=== PATIENT | female | born 1970 | race Caucasian/White ===

== ENCOUNTER → 2018-04-25 | Outpatient (CLI) | payer OTHER | LOC: WOUNDCARE 09:14 | PROVIDERS: ATTEND Surgery | DX: I70.245 Atherosclerosis of native arteries of left leg with ulceration of other part of foot (principal); L97.524 Non-pressure chronic ulcer of other part of left foot with necrosis of bone; I70.235 Atherosclerosis of native arteries of right leg with ulceration of other part of foot; L97.512 Non-pressure chronic ulcer of other part of right foot with fat layer exposed; I96 Gangrene, not elsewhere classified; B33.24 Viral cardiomyopathy | CPT/HCPCS: 99204 ==

== ENCOUNTER → 2018-05-02 | Outpatient (CLI) | payer OTHER | LOC: WOUNDCARE 15:06 | PROVIDERS: ATTEND Surgery | DX: I70.245 Atherosclerosis of native arteries of left leg with ulceration of other part of foot (principal); L97.524 Non-pressure chronic ulcer of other part of left foot with necrosis of bone; I70.235 Atherosclerosis of native arteries of right leg with ulceration of other part of foot; L97.512 Non-pressure chronic ulcer of other part of right foot with fat layer exposed; B33.24 Viral cardiomyopathy; I96 Gangrene, not elsewhere classified | CPT/HCPCS: 99213 ==

== ENCOUNTER → 2018-06-01 | Outpatient (CLI) | payer OTHER | LOC: WOUNDCARE 12:43 | PROVIDERS: ATTEND Surgery | DX: I70.245 Atherosclerosis of native arteries of left leg with ulceration of other part of foot (principal); L97.524 Non-pressure chronic ulcer of other part of left foot with necrosis of bone; I70.235 Atherosclerosis of native arteries of right leg with ulceration of other part of foot; L97.512 Non-pressure chronic ulcer of other part of right foot with fat layer exposed; B33.24 Viral cardiomyopathy; I96 Gangrene, not elsewhere classified; I63.9 Cerebral infarction, unspecified | CPT/HCPCS: 99212 ==

== ENCOUNTER → 2018-06-13 | Outpatient (CLI) | payer OTHER | LOC: WOUNDCARE 15:18 | PROVIDERS: ATTEND Surgery | DX: I70.245 Atherosclerosis of native arteries of left leg with ulceration of other part of foot (principal); L97.524 Non-pressure chronic ulcer of other part of left foot with necrosis of bone; I70.235 Atherosclerosis of native arteries of right leg with ulceration of other part of foot; L97.512 Non-pressure chronic ulcer of other part of right foot with fat layer exposed; B33.24 Viral cardiomyopathy; I96 Gangrene, not elsewhere classified; I63.9 Cerebral infarction, unspecified | CPT/HCPCS: 99213 ==

== ENCOUNTER → 2018-06-27 | Outpatient (CLI) | payer OTHER | LOC: WOUNDCARE 15:07 | PROVIDERS: ATTEND Surgery | DX: I70.245 Atherosclerosis of native arteries of left leg with ulceration of other part of foot (principal); L97.522 Non-pressure chronic ulcer of other part of left foot with fat layer exposed; I70.235 Atherosclerosis of native arteries of right leg with ulceration of other part of foot; L97.512 Non-pressure chronic ulcer of other part of right foot with fat layer exposed; I96 Gangrene, not elsewhere classified; B33.24 Viral cardiomyopathy; I63.9 Cerebral infarction, unspecified | CPT/HCPCS: 99212 ==

== ENCOUNTER → 2018-07-11 | Outpatient (CLI) | payer OTHER | LOC: WOUNDCARE 15:18 | PROVIDERS: ATTEND Surgery | DX: I70.245 Atherosclerosis of native arteries of left leg with ulceration of other part of foot (principal); L97.522 Non-pressure chronic ulcer of other part of left foot with fat layer exposed; I70.235 Atherosclerosis of native arteries of right leg with ulceration of other part of foot; L97.512 Non-pressure chronic ulcer of other part of right foot with fat layer exposed; I96 Gangrene, not elsewhere classified | CPT/HCPCS: 99212 ==

== ENCOUNTER → 2018-07-18 | Outpatient (CLI) | payer OTHER | LOC: WOUNDCARE 13:43 | PROVIDERS: ATTEND Surgery | DX: I70.262 Atherosclerosis of native arteries of extremities with gangrene, left leg (principal); L97.522 Non-pressure chronic ulcer of other part of left foot with fat layer exposed; I70.235 Atherosclerosis of native arteries of right leg with ulceration of other part of foot; L97.512 Non-pressure chronic ulcer of other part of right foot with fat layer exposed | CPT/HCPCS: 99213 ==

== ENCOUNTER → 2018-08-01 | Outpatient (CLI) | payer OTHER | LOC: WOUNDCARE 15:12 | PROVIDERS: ATTEND Nurse Practitioner | DX: L97.522 Non-pressure chronic ulcer of other part of left foot with fat layer exposed (principal); L97.512 Non-pressure chronic ulcer of other part of right foot with fat layer exposed; I70.263 Atherosclerosis of native arteries of extremities with gangrene, bilateral legs | CPT/HCPCS: 99213 ==

== ENCOUNTER → 2018-08-15 | Outpatient (CLI) | payer OTHER | LOC: WOUNDCARE 15:13 | PROVIDERS: ATTEND Nurse Practitioner | DX: I70.245 Atherosclerosis of native arteries of left leg with ulceration of other part of foot (principal); L97.522 Non-pressure chronic ulcer of other part of left foot with fat layer exposed; I70.235 Atherosclerosis of native arteries of right leg with ulceration of other part of foot; L97.512 Non-pressure chronic ulcer of other part of right foot with fat layer exposed; I96 Gangrene, not elsewhere classified | CPT/HCPCS: 99213 ==

== ENCOUNTER → 2018-08-29 | Outpatient (CLI) | payer OTHER | LOC: WOUNDCARE 15:04 | PROVIDERS: ATTEND Nurse Practitioner | DX: I70.263 Atherosclerosis of native arteries of extremities with gangrene, bilateral legs (principal); L97.522 Non-pressure chronic ulcer of other part of left foot with fat layer exposed; L97.512 Non-pressure chronic ulcer of other part of right foot with fat layer exposed | CPT/HCPCS: 99212 ==

== ENCOUNTER → 2018-09-19 | Outpatient (CLI) | payer OTHER | LOC: WOUNDCARE 10:16 | PROVIDERS: ATTEND Nurse Practitioner | DX: I70.263 Atherosclerosis of native arteries of extremities with gangrene, bilateral legs (principal); I70.245 Atherosclerosis of native arteries of left leg with ulceration of other part of foot; L97.522 Non-pressure chronic ulcer of other part of left foot with fat layer exposed; I70.235 Atherosclerosis of native arteries of right leg with ulceration of other part of foot; L97.512 Non-pressure chronic ulcer of other part of right foot with fat layer exposed | CPT/HCPCS: 99212 ==

== ENCOUNTER → 2018-10-10 | Outpatient (CLI) | payer OTHER | LOC: WOUNDCARE 15:10 | PROVIDERS: ATTEND Surgery | DX: I70.245 Atherosclerosis of native arteries of left leg with ulceration of other part of foot (principal); L97.522 Non-pressure chronic ulcer of other part of left foot with fat layer exposed; I96 Gangrene, not elsewhere classified | CPT/HCPCS: 99212 ==

== ENCOUNTER → 2018-10-31 | Outpatient (CLI) | payer OTHER | LOC: WOUNDCARE 15:29 | PROVIDERS: ATTEND Surgery | DX: I70.245 Atherosclerosis of native arteries of left leg with ulceration of other part of foot (principal); I70.262 Atherosclerosis of native arteries of extremities with gangrene, left leg; L97.522 Non-pressure chronic ulcer of other part of left foot with fat layer exposed | CPT/HCPCS: 99212 ==

== ENCOUNTER → 2018-11-28 | Outpatient (CLI) | payer OTHER | LOC: WOUNDCARE 14:56 | PROVIDERS: ATTEND Surgery | DX: I70.245 Atherosclerosis of native arteries of left leg with ulceration of other part of foot (principal); I70.262 Atherosclerosis of native arteries of extremities with gangrene, left leg; L97.522 Non-pressure chronic ulcer of other part of left foot with fat layer exposed | CPT/HCPCS: 99212 ==

== ENCOUNTER → 2018-12-26 | Outpatient (CLI) | payer OTHER | LOC: WOUNDCARE 15:42 | PROVIDERS: ATTEND Surgery | DX: I70.245 Atherosclerosis of native arteries of left leg with ulceration of other part of foot (principal); I70.262 Atherosclerosis of native arteries of extremities with gangrene, left leg; L97.521 Non-pressure chronic ulcer of other part of left foot limited to breakdown of skin | CPT/HCPCS: 99212 ==

== ENCOUNTER → 2019-01-23 | Outpatient (CLI) | payer OTHER | LOC: WOUNDCARE 15:28 | PROVIDERS: ATTEND Surgery | DX: I70.245 Atherosclerosis of native arteries of left leg with ulceration of other part of foot (principal); I70.262 Atherosclerosis of native arteries of extremities with gangrene, left leg; L97.524 Non-pressure chronic ulcer of other part of left foot with necrosis of bone | CPT/HCPCS: 99212 ==

== ENCOUNTER → 2019-02-21 | Outpatient (CLI) | payer OTHER | LOC: WOUNDCARE 11:58 | PROVIDERS: ATTEND Surgery | DX: L97.524 Non-pressure chronic ulcer of other part of left foot with necrosis of bone (principal); I70.245 Atherosclerosis of native arteries of left leg with ulceration of other part of foot; I96 Gangrene, not elsewhere classified | CPT/HCPCS: 11044 ==

== ENCOUNTER → 2019-02-28 | Outpatient (CLI) | payer OTHER | LOC: WOUNDCARE 13:28 | PROVIDERS: ATTEND Surgery | DX: L97.526 Non-pressure chronic ulcer of other part of left foot with bone involvement without evidence of necrosis (principal); I70.245 Atherosclerosis of native arteries of left leg with ulceration of other part of foot; I96 Gangrene, not elsewhere classified | CPT/HCPCS: 99213 ==

== ENCOUNTER → 2019-03-28 | Outpatient (CLI) | payer OTHER | LOC: WOUNDCARE 13:15 | PROVIDERS: ATTEND Surgery | DX: L97.526 Non-pressure chronic ulcer of other part of left foot with bone involvement without evidence of necrosis (principal); I70.245 Atherosclerosis of native arteries of left leg with ulceration of other part of foot; I96 Gangrene, not elsewhere classified | CPT/HCPCS: 11044 ==

== ENCOUNTER → 2019-04-11 | Outpatient (CLI) | payer OTHER | LOC: WOUNDCARE 12:59 | PROVIDERS: ATTEND Surgery | DX: L97.526 Non-pressure chronic ulcer of other part of left foot with bone involvement without evidence of necrosis (principal); I70.245 Atherosclerosis of native arteries of left leg with ulceration of other part of foot; I96 Gangrene, not elsewhere classified | CPT/HCPCS: 99212 ==

== ENCOUNTER 2019-06-20 09:53 | Emergency (ER) | payer OTHER ==
[~2019-06-20] VITALS: Ht 160 cm; Wt 109.0 kg
[2019-06-20 11:20] LABS: BASOPHILS # (AUTO) 0.1 10^3/uL (0.0-0.1); BASOPHILS % (AUTO) 1 % (0-10); EOSINOPHILS # (AUTO) 0.2 10^3/uL (0.0-0.3); EOSINOPHILS % (AUTO) 2 % (0-10); HEMATOCRIT 43 % (35-52); LYMPHOCYTES # (AUTO) 1.3 X 10^3 (1.0-4.0); LYMPHOCYTES % (AUTO) 16 % (12-44); MEAN CORPUSCULAR HEMOGLOBIN 29 PG (25-34); MEAN CORPUSCULAR HGB CONC 33 G/DL (32-36); MEAN CORPUSCULAR VOLUME 88 FL (80-99); MEAN PLATELET VOLUME 11.6 FL (7.4-10.4); MONOCYTES # (AUTO) 0.7 X 10^3 (0.0-1.0); MONOCYTES % (AUTO) 8 % (0-12); NEUTROPHILS # (AUTO) 6.2 X 10^3 (1.8-7.8); NEUTROPHILS % (AUTO) 73 % (42-75); PLATELET COUNT 233 10^3/uL (130-400); RED CELL DISTRIBUTION WIDTH 13.9 % (10.0-14.5); WHITE BLOOD COUNT 8.5 10^3/uL (4.3-11.0)
[2019-06-20 11:29] LABS: POTASSIUM 3.8 MMOL/L (3.6-5.0); SODIUM 142 MMOL/L (135-145)
[2019-06-20 11:30] LABS: ALANINE AMINOTRANSFERASE 64 U/L (0-55); ALBUMIN 4.3 GM/DL (3.2-4.5); ALKALINE PHOSPHATASE 225 U/L (40-136); BILIRUBIN,TOTAL 0.7 MG/DL (0.1-1.0); BUN/CREATININE RATIO 18; CALCIUM 9.8 MG/DL (8.5-10.1); CARBON DIOXIDE 26 MMOL/L (21-32); CHLORIDE 105 MMOL/L (98-107); CREATININE SERUM 0.72 MG/DL (0.60-1.30); GFR ESTIMATED > 60; GLUCOSE 118 MG/DL (70-105); TOTAL PROTEIN 7.7 GM/DL (6.4-8.2)
[2019-06-20] MEDS ORDERED: HOLD METFORMIN - RECEIVED CONTRAST 20 ML VIAL IV SCH (11:45)
[2019-06-20] MEDS ORDERED: CATHETER FLUSH 10 ML SYR IV PRN (11:45)
[2019-06-20] MEDS ORDERED: NS 100 ML (IVPB) BAG IV ONE (11:45)
[2019-06-20] MEDS ORDERED: IOHEXOL 350 MG/ML 150 ML (OMNIPAQUE 350) VIAL IV ONE (11:45)
--- NOTE | 2019-06-20 12:26 | Diagnostic Imaging Report ---
PROCEDURE: CT angiography Chest TECHNIQUE: After intravenous administration of contrast, thin section axial CT angiography of the chest was performed. 3D MIP reconstructions were made. All CT scans use one or more of the following dose optimizing techniques: automated exposure control, MA and/or KvP adjustment based on a patient size and exam type, or iterative reconstruction. INDICATION: Shortness of air. COMPARISON: None available. FINDINGS: Vasculature: No pulmonary emboli. No CT evidence of pulmonary hypertension or right ventricular strain. Thoracic aorta is normal in caliber. No aortic dissection or pseudoaneurysm. Heart and mediastinum: Visualized thyroid is normal. No supraclavicular, axillary, or intra-thoracic lymphadenopathy. The heart is normal in size without pericardial effusion. Pleura: Trace bilateral pleural effusions. No pneumothorax. Lungs and airway: No endoluminal lesion in the trachea or central bronchi. No pulmonary mass, nodule or consolidation. Upper abdomen: Cholelithiasis. No CT features of acute cholecystitis. Musculoskeletal: No concerning osseous lesion. IMPRESSION: 1. No pulmonary emboli or acute aortic syndrome. 2. Trace bilateral pleural effusions. 3. Lungs are clear. Dictated by: Dictated on workstation # [id number]
--- NOTE | 2019-06-20 12:42 | ED Respiratory ---
General Chief Complaint: Respiratory Problems Stated Complaint: SOB HX SURGERY Nursing Triage Note: Patient c/o shortness of air. States that she had surgery on Wednesday to have her left great toe amputated and her achillis lengthened. She reports that she has been short of air since Wednesday. Source: patient History of Present Illness Date Seen by Provider: Jun 20, 2019 Time Seen by Provider: 11:00 Initial Comments Patient presents with increased shortness breath over the past 3 days after having her left great toe amputated for gangrene. Patient reports sensation of inability to take a deep breath. She denies chest tightness, chest pain, nausea vomiting, shortness of breath, fever chills or sweats. No abdominal pain. Denies history of coronary disease, congestive heart failure, asthma or chronic disease. Patient states she had an echocardiogram prior to her surgery which was normal. No other acute symptoms or complaints. Patient is not on anticoagulation therapy Timing/Duration: yesterday, intermittent Severity: mild Prior Episodes/Possible Cause: no prior episodes Allergies and Home Medications Allergies Coded Allergies: No Known Drug Allergies (Unverified , 06/20/19) Patient Home Medication List Home Medication List Reviewed: Yes Review of Systems Review of Systems Constitutional: see HPI EENTM: see HPI Respiratory: see HPI Cardiovascular: see HPI Gastrointestinal: see HPI Genitourinary: see HPI Musculoskeletal: see HPI Past Blqqfgs-Mufqgs-Arjnek Hx Past Med/Social Hx: Reviewed Nursing Past Med/Soc Hx Patient Social History Alcohol Use: Denies Use Recreational Drug Use: No Smoking Status: Never a Smoker 2nd Hand Smoke Exposure: No Recent Foreign Travel: No Contact w/Someone Who Travel: No Recent Infectious Disease Expo: No Recent Hopitalizations: Yes (Surgery on Sunday June 16, 2019) Physical Abuse: No Sexual Abuse: No Mistreated: No Fear: No Seasonal Allergies Seasonal Allergies: No Past Medical History Surgeries: Yes (Left great toe amputated, Achillis lengthened) Amputation, Orthopedic Respiratory: Yes Sleep Apnea Cardiac: Yes (PAD, ) Hypertension, Peripheral Vascular Stroke Female Reproductive Disorders: Endometriosis Genitourinary: No Gastrointestinal: No Musculoskeletal: No Endocrine: Yes Hypothyroidsim HEENT: No Cancer: No Psychosocial: No Integumentary: No Blood Disorders: No Physical Exam Vital Signs - First Documented 06/20/19 10:00 Temp 36.7 Pulse 40 Resp 18 B/P (MAP) 150/77 (101) Pulse Ox 95 O2 Delivery Room Air Capillary Refill : Less Than 3 Seconds Height: '" Weight: lbs. oz. 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, no motor/sensory deficits, oriented x 3 Focused Exam Sepsis Stage: Ruled Out Progress/Results/Core Measures Suspected Sepsis Recent Fever Within 48 Hours: No Infection Criteria Present: None New/Unexplained Altered Menta: No Sepsis Screen: No Definite Risk SIRS Temperature: Pulse: 40 Respiratory Rate: 18 Laboratory Tests 06/20/19 10:45: White Blood Count 8.5 Blood Pressure 150 /77 Mean: 101 Laboratory Tests 06/20/19 10:45: Creatinine 0.72, Platelet Count 233, Total Bilirubin 0.7 Results/Orders Lab Results Laboratory Tests Test 06/20/19 10:45 Range/Units White Blood Count 8.5 4.3-11.0 10^3/uL Red Blood Count 4.86 4.35-5.85 10^6/uL Hemoglobin 14.0 11.5-16.0 G/DL Hematocrit 43 35-52 % Mean Corpuscular Volume 88 80-99 FL Mean Corpuscular Hemoglobin 29 25-34 PG Mean Corpuscular Hemoglobin Concent 33 32-36 G/DL Red Cell Distribution Width 13.9 10.0-14.5 % Platelet Count 233 130-400 10^3/uL Mean Platelet Volume 11.6 H 7.4-10.4 FL Neutrophils (%) (Auto) 73 42-75 % Lymphocytes (%) (Auto) 16 12-44 % Monocytes (%) (Auto) 8 0-12 % Eosinophils (%) (Auto) 2 0-10 % Basophils (%) (Auto) 1 0-10 % Neutrophils # (Auto) 6.2 1.8-7.8 X 10^3 Lymphocytes # (Auto) 1.3 1.0-4.0 X 10^3 Monocytes # (Auto) 0.7 0.0-1.0 X 10^3 Eosinophils # (Auto) 0.2 0.0-0.3 10^3/uL Basophils # (Auto) 0.1 0.0-0.1 10^3/uL Sodium Level 142 135-145 MMOL/L Potassium Level 3.8 3.6-5.0 MMOL/L Chloride Level 105 98-107 MMOL/L Carbon Dioxide Level 26 21-32 MMOL/L Anion Gap 11 5-14 MMOL/L Blood Urea Nitrogen 13 7-18 MG/DL Creatinine 0.72 0.60-1.30 MG/DL Estimat Glomerular Filtration Rate > 60 BUN/Creatinine Ratio 18 Glucose Level 118 H 70-105 MG/DL Calcium Level 9.8 8.5-10.1 MG/DL Corrected Calcium 9.6 8.5-10.1 MG/DL Total Bilirubin 0.7 0.1-1.0 MG/DL Aspartate Amino Transf (AST/SGOT) 44 H 5-34 U/L Alanine Aminotransferase (ALT/SGPT) 64 H 0-55 U/L Alkaline Phosphatase 225 H 40-136 U/L Troponin I < 0.30 <0.30 NG/ML Pro-B-Type Natriuretic Peptide 203.8 H <75.0 PG/ML Total Protein 7.7 6.4-8.2 GM/DL Albumin 4.3 3.2-4.5 GM/DL My Orders Orders - KARYNA OH DO Cbc With Automated Diff (06/20/19 10:27) Comprehensive Metabolic Panel (06/20/19 10:27) Troponin I Fs (06/20/19 10:27) Probnp Fs (06/20/19 10:27) Ekg Tracing (06/20/19 10:27) Ct Angio Chest W (06/20/19 10:55) Iohexol Injection (Omnipaque 350 Mg/Ml 1 (06/20/19 11:45) Received Contrast (Hold Metformin- Contr (06/20/19 11:45) Ns (Ivpb) (Sodium Chloride 0.9% Ivpb Bag (06/20/19 11:45) Sodium Chloride Flush (Catheter Flush Sy (06/20/19 11:45) Medications Given in ED Current Medications Medications Dose Ordered Sig/Indy Route Start Time Stop Time Status Last Admin Dose Admin Iohexol 125 ml ONCE ONCE IV 06/20/19 11:45 06/20/19 11:46 DC 06/20/19 11:58 125 ML Sodium Chloride 10 ml NEEDED PRN IV 06/20/19 11:45 06/20/19 11:58 10 ML Sodium Chloride 100 ml ONCE ONCE IV 06/20/19 11:45 06/20/19 11:46 DC 06/20/19 11:58 80 ML Vital Signs/I&O 06/20/19 10:00 Temp 36.7 Pulse 40 Resp 18 B/P (MAP) 150/77 (101) Pulse Ox 95 O2 Delivery Room Air Capillary Refill : Less Than 3 Seconds Blood Pressure Mean: 101 Departure Communication (Admissions) EKG, lab, CT at bedtime reviewed. Studies are reassuring. Patient's BNP midly elevated without evidence of congestive heart failure on CT chest. Will increase patient's diuretic over the next 3 days with PCP follow-up. Return precautions reviewed. Patient verbalizes understanding and agreement with discharge instructions prior to departure. Impression Primary Impression: Dyspnea Disposition: 20 Condition: Improved Departure-Patient Inst. Decision time for Depature: 12:41 Referrals: OZZIE NGUYEN MD (PCP/Family) Primary Care Physician Patient Instructions: Shortness of Breath (Dyspnea) (DC) Add. Discharge Instructions: You were evaluated emergency department for shortness of breath. EKG lab and imaging studies were performed and are nondiagnostic. The exact cause of your symptoms has not been determined. Please increase home medications and take a double dose of your diuretic daily for the next 3 days. Follow-up with your PCP for reevaluation later this week. Return to the ED if new or worsening symptoms. All discharge instructions reviewed with patient and/or family. Voiced understanding. KARYNA OH DO Jun 20, 2019 12:42
[2019-06-20 12:58] VITALS: BP 124/69
== END 2019-06-20 12:58 | disposition home or self-care (01) ==
LOC: EDUNIT# 09:53 → ER FS 09:54
DX: R06.00 Dyspnea, unspecified (principal); I10 Essential (primary) hypertension; E03.9 Hypothyroidism, unspecified; Z86.73 Personal history of transient ischemic attack (TIA), and cerebral infarction without residual deficits; Z89.412 Acquired absence of left great toe
CPT/HCPCS: 36415; 71275; 80053; 83880; 84484; 85025; 93005

== ENCOUNTER 2022-12-23 21:19 | Emergency (ER) | payer BC, OTHER ==
[~2022-12-23] VITALS: Ht 170 cm; Wt 148.0 kg
[2022-12-23] MEDS ORDERED: SUCCINYLCHOLINE INJ 20 MG/1 ML 10 ML VIAL INJ ONE (21:24)
[2022-12-23] MEDS ORDERED: AMIODARONE 150 MG/3 ML (CORDARONE) VIAL IV ONE (21:24)
[2022-12-23] MEDS ORDERED: ETOMIDATE IV SOLN 20 MG/10 ML VIAL IV ONE (21:24)
[2022-12-23] MEDS ORDERED: MIDAZOLAM 5 MG/5 ML (VERSED) VIAL IJ ONE (21:24)
[2022-12-23 21:43] LABS: BASOPHILS # (AUTO) 0.3 10^3/uL (0.0-0.1); BASOPHILS % (AUTO) 1 % (0-10); EOSINOPHILS # (AUTO) 0.5 10^3/uL (0.0-0.3); EOSINOPHILS % (AUTO) 2 % (0-10); HEMATOCRIT 46 % (35-52); HEMOGLOBIN 14.8 g/dL (11.5-16.0); LYMPHOCYTES # (AUTO) 11.7 10^3/uL (1.0-4.0); LYMPHOCYTES % (AUTO) 44 % (12-44); MEAN CORPUSCULAR HEMOGLOBIN 29 pg (25-34); MEAN CORPUSCULAR HGB CONC 32 g/dL (32-36); MEAN CORPUSCULAR VOLUME 90 fL (80-99); MEAN PLATELET VOLUME 11.6 fL (9.0-12.2); MONOCYTES # (AUTO) 1.4 10^3/uL (0.0-1.0); MONOCYTES % (AUTO) 5 % (0-12); NEUTROPHILS # (AUTO) 11.1 10^3/uL (1.8-7.8); NEUTROPHILS % (AUTO) 42 % (42-75); PLATELET COUNT 381 10^3/uL (130-400); WHITE BLOOD COUNT 26.4 10^3/uL (4.3-11.0)
[2022-12-23] MEDS ORDERED: PROPOFOL DRIP (ICU) 100 ML IV ONE (21:44)
[2022-12-23] MEDS ORDERED: dilTIAZem DRIP PRE-MIX 125 ML IV SCH (21:45)
--- NOTE | 2022-12-23 21:52 | Diagnostic Imaging Report ---
EXAMINATION: Chest 1 view. HISTORY: Chest pain. COMPARISON: 12/23/2022. FINDINGS: Endotracheal tube tip terminates 2 cm above the jennifer. Gastric tube is in the stomach. There is an opacity projecting over the right apex. No pleural effusion. No pneumothorax. Heart is enlarged. IMPRESSION: Right apical opacity which may represent a loculated effusion or pneumonia. Dictated by: Dictated on workstation # [id number]
[2022-12-23] MEDS: PROPOFOL DRIP (ICU) 100 ML IV SCH ×2 (21:54→23:43)
[2022-12-23 22:02] LABS: ALBUMIN 4.4 GM/DL (3.2-4.5); INR 1.1 (0.8-1.4); POTASSIUM 4.4 MMOL/L (3.6-5.0); PROTHROMBIN TIME PATIENT 15.2 SEC (12.2-14.7)
[2022-12-23 22:04] LABS: TRIGLYCERIDES 356 MG/DL (<150)
[2022-12-23 22:05] LABS: TOTAL PROTEIN 7.8 GM/DL (6.4-8.2)
--- NOTE | 2022-12-23 22:06 | ED General ---
General Chief Complaint: Unresponsive Stated Complaint: UNRESPONSIVE Source of Information: Patient Exam Limitations: No Limitations History of Present Illness Date Seen by Provider: Dec 23, 2022 Time Seen by Provider: 21:19 Initial Comments Patient is a 52-year-old female brought to the emergency department by EMS after being found unresponsive parked in her car on the side of the road. Per report of EMS passerby found her and pulled her out of the vehicle and called 911. AED was placed by first responders patient was delivered 1 shock. EMS brings her in status post Igel placement bagging with fluids running. Reported glucose of 180. Patient was given 0.4 of Narcan. EMS personnel report that the patient h ad a wide-complex irregular tachycardia and intermittently almost seemed to have V-fib. She was never shocked. Blood pressure was 90 systolic when hooked to our monitor. Heart rate in the 140s. Cyanotic around the face with copious bloody sputum around the eye gel tube. After second IV established decision was made to place more secure airway. Patient was sedated with etomidate, chemically paralyzed with rocuronium and a 7.5 ET tube was placed. Patient had no obvious outward signs of trauma. She is morbidly obese. Pupils were approximately 4 to 5 mm and equal. She was making effort with BVM. After intubation respiratory therapy had quite a difficult time and maintaining sats on the ventilator. Patient was placed in reverse Trendelenburg to pull weight off of her chest. Tube was exchanged with a bougie to an 8 oh tube. Second chest x-ray confirms placement with the tip of the tube at the jennifer. It was withdrawn approximately a centimeter to 2 cm. Bilateral breath sounds auscultated. She does have a right upper lobe infiltrate on chest x-ray. At 2235 I made contact with her who has come to the hospital. He states that she has a fairly significant past medical history and has had "2 strokes" which impaired her ability to communicate for a short while. He states that she was out for her Wednesday evening dinner with girlfriends. He is unsure of any symptoms that she may have had prior to today. He is not familiar with her medications, does not know what pharmacy she uses. He cannot name her doctor. He is unsure if she has ever had irregular heart rhythm or if she is on blood thinners. He is quite distraught and tearful. Really unable to provide further history. Timing/Duration: 1 Hour Allergies and Home Medications Allergies Coded Allergies: No Known Drug Allergies (Unverified , 06/20/19) Patient Home Medication List Home Medication List Reviewed: Yes Review of Systems Review of Systems Constitutional: see HPI Past Sxeztgl-Wfqgpk-Bzacsy Hx Seasonal Allergies Seasonal Allergies: No Past Medical History Surgeries: Yes (Left great toe amputated, Achillis lengthened) Amputation, Orthopedic Respiratory: Yes Sleep Apnea Cardiac: Yes (PAD, ) Hypertension, Peripheral Vascular Stroke Female Reproductive Disorders: Endometriosis Genitourinary: No Gastrointestinal: No Musculoskeletal: No Endocrine: Yes Hypothyroidsim HEENT: No Cancer: No Psychosocial: No Integumentary: No Blood Disorders: No Physical Exam Vital Signs Vital Signs - First Documented 12/23/22 21:19 Temp 37.8 Pulse 170 B/P (MAP) 89/65 (73) Pulse Ox 95 O2 Delivery Ambu Bag Capillary Refill : Height, Weight, BMI Height: '" Weight: lbs. oz. kg; 42.00 BMI Method: General Appearance: Obese Eyes: Bilateral Eye PERRL (4-5mm) HEENT: PERRL/EOMI, Other (copious bloody sputum at lips - Igel in place on arrival) Respiratory: Lungs Clear (by BVM) Cardiovascular: Irregularly Irregular, Tachycardia Gastrointestinal: Other (morbid obesity; large protuberant abdomen) Extremity: Normal Inspection, Other (s/p prior amputation great toe left foot ) Neurologic/Psychiatric: Other (patient breathing with BVM; noted to not be moving extremities) Skin: Warm/Dry, Other (some mottling over breasts) Focused Exam Sepsis Stage: Severe Sepsis Lactate Level 12/23/22 21:35: Lactic Acid Level 7.40*H Time of Focused Exam: 23:30 Respiratory: Lungs Clear, Normal Breath Sounds Cardiovascular: Irregularly Irregular, Tachycardia Capillary Refill: Less Than 3 Seconds Peripheral Pulses: 1+ Radial Pulses (R), 1+ Radial Pulses (L) Skin: normal color, warm/dry Lactic Acid Level Laboratory Tests Test 12/23/22 21:35 Lactic Acid Level 7.40 MMOL/L (0.50-2.00) *H Within 3hrs of presentation: Admin fluids, Admin 30ml/kg IBW due to BMI>30, Admin ABX, Blood cultures prior to ABX's, Focus exam, Lactate level Procedures/Interventions Intubation Method: orotracheal Medications: Etomidate, Rocuronium Positive End Tide CO2: Yes Breath Sounds after Intubation: bilateral-equal Post Intubation Xray: Yes Postintubation x-ray shows the tip of the tube 2 cm above the jennifer Approximately 30 minutes after intubation respiratory was having difficulty with maintaining oxygen saturations on the vent. Bougie was used to exchange the 7.5 ET tube to an 8-0 ET tube. Post exchange x-ray shows the tip of the tube at the jennifer. It was withdrawn approximately 1 to 2 cm Progress/Results/Core Measures Suspected Sepsis SIRS Temperature: Pulse: 130 Respiratory Rate: Laboratory Tests 12/23/22 21:35: White Blood Count 26.4H Blood Pressure 185 /162 Mean: 170 12/23/22 21:35: Lactic Acid Level 7.40*H Laboratory Tests 12/23/22 21:35: Creatinine 1.14, INR Comment 1.1, Platelet Count 381, Total Bilirubin 0.5 Results/Orders Lab Results Laboratory Tests Test 12/23/22 21:35 12/23/22 22:04 12/23/22 23:34 12/23/22 23:59 Range/Units White Blood Count 26.4 H 4.3-11.0 10^3/uL Red Blood Count 5.08 3.80-5.11 10^6/uL Hemoglobin 14.8 11.5-16.0 g/dL Hematocrit 46 35-52 % Mean Corpuscular Volume 90 80-99 fL Mean Corpuscular Hemoglobin 29 25-34 pg Mean Corpuscular Hemoglobin Concent 32 32-36 g/dL Red Cell Distribution Width 14.8 H 10.0-14.5 % Platelet Count 381 130-400 10^3/uL Mean Platelet Volume 11.6 9.0-12.2 fL Immature Granulocyte % (Auto) 6 % Neutrophils (%) (Auto) 42 42-75 % Lymphocytes (%) (Auto) 44 12-44 % Monocytes (%) (Auto) 5 0-12 % Eosinophils (%) (Auto) 2 0-10 % Basophils (%) (Auto) 1 0-10 % Neutrophils # (Auto) 11.1 H 1.8-7.8 10^3/uL Lymphocytes # (Auto) 11.7 H 1.0-4.0 10^3/uL Monocytes # (Auto) 1.4 H 0.0-1.0 10^3/uL Eosinophils # (Auto) 0.5 H 0.0-0.3 10^3/uL Basophils # (Auto) 0.3 H 0.0-0.1 10^3/uL Immature Granulocyte # (Auto) 1.6 H 0.0-0.1 10^3/uL Neutrophils % (Manual) 35 % Lymphocytes % (Manual) 47 % Monocytes % (Manual) 3 % Eosinophils % (Manual) 2 % Metamyelocytes % 4 % Band Neutrophils 9 % Platelet Estimate NORMAL Blood Morphology Comment NORMAL Prothrombin Time 15.2 H 12.2-14.7 SEC INR Comment 1.1 0.8-1.4 Activated Partial Thromboplast Time 29 24-35 SEC Sodium Level 142 135-145 MMOL/L Potassium Level 4.4 3.6-5.0 MMOL/L Chloride Level 107 98-107 MMOL/L Carbon Dioxide Level 15 L 21-32 MMOL/L Anion Gap 20 H 5-14 MMOL/L Blood Urea Nitrogen 23 H 7-18 MG/DL Creatinine 1.14 0.60-1.30 MG/DL Estimat Glomerular Filtration Rate 58 BUN/Creatinine Ratio 20 Glucose Level 190 H 70-105 MG/DL Lactic Acid Level 7.40 *H 0.50-2.00 MMOL/L Calcium Level 11.0 H 8.5-10.1 MG/DL Corrected Calcium 10.7 H 8.5-10.1 MG/DL Magnesium Level 2.2 1.6-2.4 MG/DL Total Bilirubin 0.5 0.1-1.0 MG/DL Aspartate Amino Transf (AST/SGOT) 299 H 5-34 U/L Alanine Aminotransferase (ALT/SGPT) 360 H 0-55 U/L Alkaline Phosphatase 140 H 40-136 U/L Troponin I < 0.028 <0.028 NG/ML Total Protein 7.8 6.4-8.2 GM/DL Albumin 4.4 3.2-4.5 GM/DL Triglycerides Level 356 H <150 MG/DL Salicylates Level < 5.0 L 5.0-20.0 MG/DL Acetaminophen Level < 10 L 10-30 UG/ML Serum Alcohol < 10 <10 MG/DL Blood Gas Puncture Site LR RRAD Blood Gas Patient Temperature 37.1 35.9 Arterial Blood pH 7.11 *L 7.24 *L 7.37-7.43 Arterial Blood Partial Pressure CO2 78 *H 51 H 35-45 MMHG Arterial Blood Partial Pressure O2 61 L 58 L 79-93 MMHG Arterial Blood HCO3 23 21 L 23-27 MMOL/L Arterial Blood Total CO2 25.8 22.6 21.0-31.0 MMOL/L Arterial Blood Oxygen Saturation 78 L 82 L 94-100 % Arterial Blood Base Excess -4.9 L -5.1 L -2.5-2.5 MMOL/L Shahid Test YES-POS YES-POS Blood Gas Ventilator Setting YES YES Blood Gas Inspired Oxygen 100% 100% Urine Color YELLOW Urine Clarity CLEAR Urine pH 5.5 5-9 Urine Specific [place] 1.020 1.016-1.022 Urine Protein 1+ H NEGATIVE Urine Glucose (UA) TRACE H NEGATIVE Urine Ketones NEGATIVE NEGATIVE Urine Nitrite NEGATIVE NEGATIVE Urine Bilirubin NEGATIVE NEGATIVE Urine Urobilinogen 0.2 < = 1.0 MG/DL Urine Leukocyte Esterase NEGATIVE NEGATIVE Urine RBC (Auto) 1+ H NEGATIVE Urine RBC 0-2 /HPF Urine WBC 0-2 /HPF Urine Squamous Epithelial Cells RARE /HPF Urine Crystals NONE /LPF Urine Bacteria TRACE /HPF Urine Casts PRESENT /LPF Urine Hyaline Casts RARE /LPF Urine Coarse Granular Casts 0-2 H /LPF Urine Mucus NEGATIVE /LPF Urine Culture Indicated NO Urine Opiates Screen NEGATIVE NEGATIVE Urine Oxycodone Screen NEGATIVE NEGATIVE Urine Methadone Screen NEGATIVE NEGATIVE Urine Propoxyphene Screen NEGATIVE NEGATIVE Urine Barbiturates Screen NEGATIVE NEGATIVE Ur Tricyclic Antidepressants Screen NEGATIVE NEGATIVE Urine Phencyclidine Screen NEGATIVE NEGATIVE Urine Amphetamines Screen NEGATIVE NEGATIVE Urine Methamphetamines Screen NEGATIVE NEGATIVE Urine Benzodiazepines Screen NEGATIVE NEGATIVE Urine Cocaine Screen NEGATIVE NEGATIVE Urine Cannabinoids Screen NEGATIVE NEGATIVE My Orders Orders - ANGELES CORDERO MD Cbc With Automated Diff (12/23/22 21:34) Magnesium (12/23/22 21:34) Chest 1 View, Ap/Pa Only (12/23/22 21:34) Ekg Tracing (12/23/22 21:34) Comprehensive Metabolic Panel (12/23/22 21:34) Protime With Inr (12/23/22 21:34) Partial Thromboplastin Time (12/23/22 21:34) O2 (12/23/22 21:34) Monitor-Rhythm Ecg Trace Only (12/23/22 21:34) Lipid Panel (12/24/22 06:00) Ed Iv/Invasive Line Start (12/23/22 21:34) Troponin I [place] (12/23/22 21:34) Drug Screen Stat (Urine) (12/23/22 21:34) Salicylate (12/23/22 21:34) Acetaminophen (12/23/22 21:34) Alcohol (12/23/22 21:34) Ua Culture If Indicated (12/23/22 21:34) Catheter(Urinary) Insert & Ass 03,15 (12/23/22 21:34) Ct Head Wo (12/23/22 21:34) Diltiazem Injection (Cardizem Injection) (12/23/22 21:45) Diltiazem Drip Pre-Mix (Cardizem Drip Pr (12/23/22 21:45) Propofol Drip (Icu) (Diprivan Drip (Icu) (12/23/22 21:45) Triglycerides (12/23/22 21:38) Triglycerides (12/25/22 21:38) Manual Differential (12/23/22 21:35) Propofol Drip (Icu) (Diprivan Drip (Icu) (12/23/22 21:44) Arterial Blood Gas (12/23/22 22:06) Blood Culture (12/23/22 22:07) Lactic Acid Analyzer (12/23/22 22:07) Cefepime Injection (Maxipime Injection) (12/23/22 22:15) Chest 1 View, Ap/Pa Only (12/23/22 22:27) Ns Iv 1000 Ml (Sodium Chloride 0.9%) (12/23/22 22:29) Arterial Blood Gas (12/23/22 23:40) Ns Iv 1000 Ml (Sodium Chloride 0.9%) (12/23/22 23:40) Arterial Blood Draw - Obtain (12/23/22 22:05) Blood Culture (12/24/22 00:21) Lactic Acid Analyzer (12/24/22 00:21) Medications Given in ED Current Medications Medications Dose Ordered Sig/Indy Route Start Time Stop Time Status Last Admin Dose Admin Diltiazem HCl 10 mg ONCE ONCE IVP 12/23/22 21:45 12/23/22 21:46 DC 12/23/22 21:52 10 MG Vital Signs/I&O 12/23/22 12/23/22 12/23/22 12/23/22 21:19 21:52 21:53 21:54 Temp 37.8 Pulse 170 133 103 130 B/P (MAP) 89/65 (73) 219/165 185/162 185/162 Pulse Ox 95 O2 Delivery Ambu Bag 12/23/22 12/23/22 22:24 23:43 Pulse 140 133 B/P (MAP) 178/156 81/65 12/24/22 00:00 Intake Total 2100 ml Balance 2100 ml Capillary Refill : Blood Pressure Mean: 170 Progress Note : Time: 00:12 Progress Note Patient seen and examined by me. Evaluation includes physical exam, CBC, Chem- 12, coags, ABG x2, aspirin, Tylenol levels, alcohol level, urinalysis, urine drug screen, chest x-ray x2. Physical exam remarkable for morbidly obese female, acute respiratory failure requiring mechanical ventilation. Pupils 4 to 5 mm and equal bilaterally, lungs are clear, abdomen is soft/protuberant. No obvious outward signs of trauma. No ecchymosis, swelling or deformities. Unresponsive to painful stimuli. Eyes closed. She is making a respiratory effort with ventilatory assistance. On arrival i-gel airway was exchanged for dedicated ET tube. Patient noted to be wide-complex tachycardia in the 170s 150 mg of amiodarone push. Heart rate down to 120s/130s. Hypertensive on arrival with wrist cuff. Oxygen saturations with bagging 90%. With connection to the ventilator she sits in the low 80s. Placed in reverse Trendelenburg sedation with propofol. EKG after Amio shows A-fib with RVR. Cardizem bolus and drip started. Labs show a white count of 26,000 otherwise normal hemoglobin and hematocrit. Chemistry shows elevated liver functions. Normal electrolytes. CO2 of 15. Lactic acid greater than 7. Coags normal. Alcohol Tylenol and salicylates undetectable. Independent interpretation of the chest x-ray shows ET tube in position on initial chest x-ray approximately 2 cm above the jennifer with a right upper lobe infiltrate. Tube was exchanged after persistent hypoxia 2 and 80 ET tube. Tube at the jennifer, withdrawn 1 to 2 cm. Patient is given cefepime antibiotics 1 g. 3 L of normal saline given. Cardizem is now hung at 15 mg an hour. Propofol is at 50. Initial ABG shows pH of 7.11 PCO2 of 78, PaO2 61 sat 78%. Second ABG showed pH 7.24, PCO2 of 51, PO2 of 58 sat of 82% Patient will get her 30 mils per kilogram bolus of IV fluids to meet sepsis criteria. Cefepime on board. She has shown some improvement with her second ABG. Family is notified of the plan of care, her is at the bedside. He advised that she does have a history of prior stroke x2 which affected her ability to communicate however that improved over time. She had no residual weakness in any of her extremities. She was actually out with friends this evening for her Wednesday night dinner. He is unaware of any prior complaints before this evening. Does not know if she has a history of atrial fibrillation or not. Per reconciliation of medications in the computer she is not chronically anticoagulated. Case was discussed with Dr. Neeta Rodriguez, ICU. He has accepted the patient for admission. Patient will be transferred via helicopter as there are no ground crew ambulance is available. She remains somewhat hypoxic but improving. ECG Initial ECG Impression Date: Dec 23, 2022 Initial ECG Impression Time: 21:23 Initial ECG Rate: 171 Initial ECG Rhythm: V.Tach Initial ECG Comparisson: No Previous ECG Available EKG #1: EKG Time: 21:29 Rate: 142 Rhythm: A Fib/Flutter ECG Comparisson: Changed EKG #2: EKG Time: 21:52 Rate: 130 Rhythm: A Fib/Flutter Intervals: QT (477) ECG Impression: Atrial Fibrillation w/RVR Diagnostic Imaging Diagonstic Imaging: Xray Plain Films/CT/US/NM/MRI: chest Comments [facility], [facility] [place], [place] NAME: [facility] REC#: [id number] PT STATUS: REG ER : 1970 PHYSICIAN: ANGELES CORDERO MD ADMIT DATE: 12/23/22/ER Signed Date of Exam:12/23/22 CHEST 1 VIEW, AP/PA ONLY EXAMINATION: Chest 1 view. HISTORY: Chest pain. COMPARISON: 12/23/2022. FINDINGS: Endotracheal tube tip terminates 2 cm above the jennifer. Gastric tube is in the stomach. There is an opacity projecting over the right apex. No pleural effusion. No pneumothorax. Heart is enlarged. IMPRESSION: Right apical opacity which may represent a loculated effusion or pneumonia. Dictated by: Dictated on workstation # [id number] Dict: 12/23/[id number] Trans: 12/23/222219 [facility] [id number] Interpreted by: APOLLO RIVERA MD Electronically signed by: APOLLO RIVERA MD 12/23/222219 Diagonstic Imaging: Xray Plain Films/CT/US/NM/MRI: chest Comments Independent interpretation of chest x-ray by me Status post tube exchange Right upper lobe infiltrate persists, tube rests at the jennifer. Instructed RT to withdraw 1 to 2 cm Critical Care Note Critical Care Start Time: 21:19 Stop Time: 00:19 Total Time (minutes) 50 minutes critical care time in the evaluation and management of this hypoxic patient with A-fib with RVR. Time includes initial evaluation, management of arrhythmia with IV amiodarone, Cardizem bolus and drip. Fluid resuscitation. Serial reevaluations at the bedside. Discussion with family. Discussion with land sales agent here at [facility]. Discussion with head of talent management at [facility]. Time does not include that spent in procedures, intubation and tube exchange. Departure Communication (Admissions) Time/Spoke to Consulting Phy: 22:[address] Crump - no cardiology over the weekend. Best to transfer out. ok with cardizem drip Impression Primary Impression: Cardiac arrest Additional Impressions: Ventricular arrhythmia Atrial fibrillation with rapid ventricular response Morbid obesity Pneumonia Qualified Codes: J18.9 - Pneumonia, unspecified organism Disposition: XFER SHT-TRM HOSP Condition: Critical Transfer Transfer Reason: Exceeds level of care Time Spoke to Accepting Phy: 23:45 Transfer Progress Notes Discussed with Dr Santacruz, ICU [facility] Transfer Facility: [facility] Method of Transfer: Air Departure-Patient Inst. Referrals: OZZIE NGUYEN MD (PCP/Family) Primary Care Physician ANGELES CORDERO MD Dec 23, 2022 22:06
[2022-12-23 22:07] LABS: BILIRUBIN,TOTAL 0.5 MG/DL (0.1-1.0)
[2022-12-23 22:08] LABS: CREATININE SERUM 1.14 MG/DL (0.60-1.30)
[2022-12-23 22:09] LABS: ACETAMINOPHEN < 10 UG/ML (10-30); SALICYLATE < 5.0 MG/DL (5.0-20.0)
[2022-12-23 22:12] LABS: MAGNESIUM 2.2 MG/DL (1.6-2.4)
[2022-12-23 22:13] LABS: BAND NEUTROPHILS 9 %; EOSINOPHILS % (MANUAL) 2 %; LYMPHOCYTES % (MANUAL) 47 %; METAMYELOCYTES % 4 %; MONOCYTES % (MANUAL) 3 %; NEUTROPHILS % (MANUAL) 35 %
[2022-12-23 22:13] LABS: ABG BASE EXCESS -4.9 MMOL/L (-2.5-2.5); ABG OXYGEN SATURATION 78 % (94-100); ABG PO2 61 MMHG (79-93); ABG TCO2 25.8 MMOL/L (21.0-31.0)
[2022-12-23 22:14] LABS: PLATELET ESTIMATE NORMAL; RBC MORPH NORMAL
[2022-12-23 22:15] LABS: ALLENS TEST YES-POS; INSPIRED O2 100%; PATIENT TEMP 37.1; VENTILATOR YES
[2022-12-23] MEDS ORDERED: CEFEPIME INJECTION 1,000 MG in NS (IVPB) 50 ML IV ONE (22:15)
[2022-12-23 22:17] LABS: ABG PH 7.11 (7.37-7.43)
[2022-12-23 22:18] LABS: ABG PCO2 78 MMHG (35-45)
[2022-12-23] MEDS ORDERED: NS IV 1000 ML 1,000 ML IV STA ×2 (22:29→23:40)
[2022-12-23 23:43] LABS: BILIRUBIN,URINE NEGATIVE (NEGATIVE); CLARITY,URINE CLEAR; COLOR,URINE YELLOW; GLUCOSE, URINE (UA) TRACE (NEGATIVE); KETONES,URINE NEGATIVE (NEGATIVE); LEUKOCYTE ESTERASE ,URINE NEGATIVE (NEGATIVE); NITRITE,URINE NEGATIVE (NEGATIVE); PH,URINE 5.5 (5-9); PROTEIN,URINE 1+ (NEGATIVE)
[2022-12-23 23:56] LABS: BACTERIA,URINE TRACE /HPF; HYALINE CASTS, URINE RARE /LPF; RBC,URINE 0-2 /HPF; SQUAMOUS EPITHELIAL CELL,UR RARE /HPF; WBC,URINE 0-2 /HPF
[2022-12-23 23:57] LABS: AMPHETAMINE SCREEN, URINE NEGATIVE (NEGATIVE); BARBITURATE SCREEN URINE NEGATIVE (NEGATIVE); BENZODIAZEPINES SCREEN URINE NEGATIVE (NEGATIVE); CANNABINOID SCREEN, URINE NEGATIVE (NEGATIVE); COCAINE SCREEN URINE NEGATIVE (NEGATIVE); METHADONE STAT NEGATIVE (NEGATIVE); OPIATE SCREEN URINE NEGATIVE (NEGATIVE); OXYCODONE STAT NEGATIVE (NEGATIVE); PROPOXYPHENE STAT NEGATIVE (NEGATIVE); TRICYCLIC ANTIDEPRESSANTS SCRE NEGATIVE (NEGATIVE)
[2022-12-24 00:11] LABS: ABG BASE EXCESS -5.1 MMOL/L (-2.5-2.5); ABG OXYGEN SATURATION 82 % (94-100); ABG PCO2 51 MMHG (35-45); ABG PO2 58 MMHG (79-93); ABG TCO2 22.6 MMOL/L (21.0-31.0)
[2022-12-24 00:12] LABS: ALLENS TEST YES-POS; INSPIRED O2 100%; PATIENT TEMP 35.9; VENTILATOR YES
[2022-12-24 00:13] LABS: ABG PH 7.24 (7.37-7.43)
[2022-12-24] MEDS: PROPOFOL DRIP (ICU) 100 ML IV SCH (01:53)
[2022-12-24 03:10] VITALS: BP 115/81
--- NOTE | 2022-12-24 05:29 | Diagnostic Imaging Report ---
INDICATION: Respiratory failure Portable chest 10:20 PM There is an ET tube projecting over the trachea with the tip at the jennifer. NG tube enters the stomach. There is infiltrate in the right lung apex. There is no effusion or pneumothorax. IMPRESSION: Right apical pulmonary consolidation suspicious for pneumonia. ET tip is at the jennifer and should be withdrawn 2 cm to ensure adequate ventilation of both lungs. Dictated by: Dictated on workstation # [id number]
== END 2022-12-24 03:10 | disposition short-term general hospital (02) ==
LOC: EDUNIT# 21:19 → ER 21:23
DX: I46.9 Cardiac arrest, cause unspecified (principal); I48.91 Unspecified atrial fibrillation; J18.9 Pneumonia, unspecified organism; I47.0 Re-entry ventricular arrhythmia; E66.01 Morbid (severe) obesity due to excess calories; D72.829 Elevated white blood cell count, unspecified; R74.01 Elevation of levels of liver transaminase levels; Z68.41 Body mass index [BMI] 40.0-44.9, adult
CPT/HCPCS: 31500; 36600; 51702; 71045; 80053; 80306; 81000; 82805; 83605; 83735; 84478; 84484; 85007; 85027; 85610; 85730; 87040 ×2; 93005; 93041; 94002; 94799; 99291; 99292; G0480 ×3; 36415; 80320; 80329